=== PATIENT | female | born 1995 | race Caucasian/White ===

== ENCOUNTER → 2018-05-23 | Outpatient (CLI) | payer BC ==
[~2018-05-23] MED LIST: Bactrim Ds Tab1 EACH PO; CODACE30 PO; CRUTCH4 USE; Cipro500 MG PO; DIPH50; HYDACE5 PO; LORA10ER PO; MELA3 PO; RANI150 PO
[2018-05-26 05:51] LABS: CHLAMYDIA TRACHOMATIS, NAA Negative (Negative); NEISSERIA GONORRHOEAE, NAA Negative (Negative)
== END | disposition home or self-care (01) ==
LOC: LAB SHORT 11:42 → LAB 11:42
PROVIDERS: Obstetrics & Gynecology
DX: Z01.419 Encounter for gynecological examination (general) (routine) without abnormal findings (principal); Z11.3 Encounter for screening for infections with a predominantly sexual mode of transmission
CPT/HCPCS: 87491; 87591; G0123

== ENCOUNTER → 2018-08-21 | Outpatient (CLI) | payer BC | LOC: LAB EV 11:18 → LAB SHORT 11:18 | DX: N39.0 Urinary tract infection, site not specified (principal) | CPT/HCPCS: 87077; 87086; 87186 ==

== ENCOUNTER → 2019-06-12 | Outpatient (CLI) | payer BC ==
[2019-06-12 19:25] LABS: BASOPHILS ABSOLUTE AUTO 0.04 K/mm3 (0.00-0.23); BASOPHILS PERCENT AUTO 0 % (0-2); EOSINOPHILS ABSOLUTE AUTO 0.19 K/mm3 (0.00-0.68); EOSINOPHILS PERCENT AUTO 2 % (0-6); Hematocrit 37.6 % (33.0-51.0); Hemoglobin 12.5 g/dL (11.5-16.0); IMMATURE GRAN ABSOLUTE AUTO 0.03 K/mm3 (0.00-0.10); IMMATURE GRAN PERCENT AUTO 0 % (0-1); LYMPHOCYTES ABSOLUTE AUTO 2.63 K/mm3 (0.84-5.20); LYMPHOCYTES PERCENT AUTO 23 % (21-46); MONOCYTES ABSOLUTE AUTO 1.03 K/mm3 (0.16-1.47); MONOCYTES PERCENT AUTO 9 % (4-13); Mean Corpuscular HGB 29.7 pg (26.0-34.0); Mean Corpuscular HGB Conc 33.2 g/dL (31.5-36.5); Mean Corpuscular Volume 89 fL (80-100); NEUTROPHILS ABSOLUTE AUTO 7.32 K/mm3 (1.96-9.15); NEUTROPHILS PERCENT AUTO 65 % (41-73); Platelet Count 340 K/mm3 (150-400); RDW Coefficient Variation 12.6 % (11.7-14.2); RDW Standard Deviation 40.7 fL (35.1-46.3); Red Blood Cell Count 4.21 M/mm3 (3.80-5.20); White Blood Cell Count 11.24 K/mm3 (4.00-11.30)
== END | disposition home or self-care (01) ==
LOC: LAB SHORT 18:40 → LAB 18:40
PROVIDERS: Physician Assistant
DX: R10.84 Generalized abdominal pain (principal)
CPT/HCPCS: 85025

== ENCOUNTER 2021-03-24 02:59 | Emergency (ER) | payer BC ==
[~2021-03-24] VITALS: Ht 167.6 cm; Wt 89.8 kg
[2021-03-24] MEDS ORDERED: ONDA4ODT MM (05:11)
== END 2021-03-24 05:32 | disposition home or self-care (01) ==
LOC: ER 02:59
DX: U07.1 COVID-19 (principal); Z91.018 Allergy to other foods
CPT/HCPCS: 96372; 99284-25; J1885

== ENCOUNTER 2021-10-17 08:22 | Emergency (ER) | payer OTHER ==
[~2021-10-17] VITALS: Ht 167.6 cm; Wt 88.9 kg
[~2021-10-17 08:22] MED LIST changes: +ONDA4ODT MM
[2021-10-17] MEDS ORDERED: BUPR100 PO (08:35)
[2021-10-17] MEDS ORDERED: HYDPAM25 PO (08:35)
[2021-10-17] MEDS ORDERED: Norco 5-325 Ta1 EACH PO (09:28)
[2021-10-17] MEDS ORDERED: IBU800 MG PO (09:28)
== END 2021-10-17 10:15 | disposition home or self-care (01) ==
LOC: ER 08:22
DX: S59.202A Unspecified physeal fracture of lower end of radius, left arm, initial encounter for closed fracture (principal); S52.612A Displaced fracture of left ulna styloid process, initial encounter for closed fracture; Z79.899 Other long term (current) drug therapy; Z91.018 Allergy to other foods; W01.0XXA Fall on same level from slipping, tripping and stumbling without subsequent striking against object, initial encounter
CPT/HCPCS: 25605; 73100; 73110; 99283-25; A9270

== ENCOUNTER 2021-10-23 10:44 | Day surgery (SDC) | payer OTHER ==
[~2021-10-23] VITALS: Ht 167.6 cm; Wt 90.4 kg
[~2021-10-23 10:44] MED LIST changes: +BUPR100 PO; +HYDPAM25 PO; +IBU800 MG PO; +Norco 5-325 Ta1 EACH PO
--- NOTE | 2021-10-23 14:12 | NUR ---
RECEIVED REPORT FROM GONZALO ALONSO RN. PT AXOX4, ANXIOUS AND IN PAIN. ABLE TO REPOSITION SELF IN BED. PT REQUESTING PO FLUIDS, VISITING WITH MOTHER AT BEDSIDE. PT'S OPERATIVE ARM (LEFT) IS IN A SOFT CAST/WRAP FROM OR. CAPILLARY REFILL IS <2.
--- NOTE | 2021-10-23 14:38 | NUR ---
Patient up to Ambulate independently. Gait steady. Discharge instructions reviewed with patient. Patient verbalizes understanding. Copy given to patient to take home. Patient States Post-Procedure ride home has been arranged. Discharged via wheelchair to private car for ride home. OPERATIVE (LEFT) ARM WRAPPED IN DRY SPLINT, FINGERS ON OPERATIVE SIDE WERE PINK AND CAPILLARY REFIL WAS <2. ALL BELONGINGS RETURNED TO PATIENT THAT SHE CAME TO STEPDOWN UNIT WITH.
--- NOTE | 2021-10-27 12:21 | NUR ---
10/27/21 1221 Massiel Hall VERIFICATIONS: EDIT CHART.
== END 2021-10-23 23:06 | disposition home or self-care (01) ==
LOC: ORSCMMR 10:44 → ORD 12:30 → ORSCMMR 23:06
PROVIDERS: Orthopaedic Surgery
PROC: 0PSJ04Z Reposition Left Radius with Internal Fixation Device, Open Approach (ICD-10-PCS; principal; 2021-10-23 12:00)
DX: S52.552A Other extraarticular fracture of lower end of left radius, initial encounter for closed fracture (principal); Z79.899 Other long term (current) drug therapy
CPT/HCPCS: A9270; C1713; J0171; J0690; J1100; J1885; J2250; J2405; J2704; J3010; J7120

== ENCOUNTER 2023-02-22 13:03 | Emergency (ER) | payer OTHER ==
[~2023-02-22] VITALS: Ht 167.6 cm; Wt 99.8 kg
[2023-02-22 13:10] VITALS: BP 134/87
[2023-02-22] MEDS ORDERED: IBUP800 PO ×2 (13:14→13:52)
[2023-02-22] MEDS ORDERED: Robaxin750 MG PO ×2 (13:14→13:52)
== END 2023-02-22 13:56 | disposition home or self-care (01) ==
LOC: ER 13:03
DX: M54.6 Pain in thoracic spine (principal); Z91.018 Allergy to other foods
CPT/HCPCS: 96372; 99282-25; A9270; J1885